=== PATIENT | female | born 1990 | race Caucasian/White ===

== ENCOUNTER 2018-05-26 18:24 | Emergency (ER) | payer SELFPAY ==
[~2018-05-26] VITALS: Ht 175.3 cm; Wt 59.9 kg
[~2018-05-26 18:24] MED LIST: ULTRAM50 MG PO; [UNRECOGNIZED DRUG - REMARK]
[2018-05-26] MEDS ORDERED: HYDROCODONE/APAP 10MG-325MG TAB PO ONE (19:30)
--- NOTE | 2018-05-26 20:21 | Diagnostic Imaging Report ---
LOWER LEG LEFT - 2 views HISTORY: Pain. Possible broken ankle. COMPARISON: None available. FINDINGS: Bones: No acute displaced fracture. Osseous alignment is within normal limits. Joints: The joint spaces are well-maintained. Soft tissues: The soft tissues appear unremarkable. IMPRESSION: No acute radiographic abnormality. Signed by: Dr. Jean Pierre Judge M.D. on 05/26/2018 8:18 PM
--- NOTE | 2018-05-26 20:23 | Diagnostic Imaging Report ---
FOOT LEFT COMPLETE - 3 views HISTORY: Pain. Possible broken foot. COMPARISON: None available. FINDINGS: Bones: Oblique fracture of the fifth metatarsal near the head without intra-articular involvement. Joints: The joint spaces are well-maintained. Soft tissues: Diffuse soft tissue swelling around the lateral aspect of the foot. IMPRESSION: Oblique fracture of the fifth metatarsal near the head without intra-articular involvement. Signed by: Dr. Jean Pierre Judge M.D. on 05/26/2018 8:20 PM
--- NOTE | 2018-05-26 20:23 | Diagnostic Imaging Report ---
ANKLE 3+ VIEWS LEFT - 3 views HISTORY: Pain. Possible broken ankle. COMPARISON: None available. FINDINGS: Bones: Partially visualized left fifth metatarsal fracture. Osseous alignment is within normal limits. Joints: The joint spaces are well-maintained. Soft tissues: Diffuse soft tissue swelling around the left ankle. IMPRESSION: 1. Diffuse soft tissue swelling around the left ankle. 2. Partially visualized left fifth metatarsal fracture. Signed by: Dr. Jean Pierre Judge M.D. on 05/26/2018 8:19 PM
[2018-05-26 21:26] VITALS: BP 112/64
== END 2018-05-26 21:31 | disposition home or self-care (01) ==
LOC: ER 18:24
DX: S80.12XA Contusion of left lower leg, initial encounter (principal); S90.02XA Contusion of left ankle, initial encounter; S90.512A Abrasion, left ankle, initial encounter; S90.32XA Contusion of left foot, initial encounter; S90.812A Abrasion, left foot, initial encounter; R26.2 Difficulty in walking, not elsewhere classified; W10.8XXA Fall (on) (from) other stairs and steps, initial encounter; Y92.008 Other place in unspecified non-institutional (private) residence as the place of occurrence of the external cause; S92.352A Displaced fracture of fifth metatarsal bone, left foot, initial encounter for closed fracture
CPT/HCPCS: 99283

== ENCOUNTER 2018-08-11 08:56 | Emergency (ER) | payer SELFPAY ==
[~2018-08-11] VITALS: Ht 175.3 cm; Wt 63.5 kg
[2018-08-11] MEDS ORDERED: SODIUM CHLORIDE 0.9% 1000ML 1,000 ML IV STA (09:32)
[2018-08-11] MEDS ORDERED: ONDANSETRON HCL INJ 2 MG/ML VIAL IV STA (09:33)
[2018-08-11] MEDS ORDERED: CEFTRIAXONE SOD 1 GM VIAL IV ONE (09:45)
[2018-08-11 10:34] LABS: BILIRUBIN,URINE NEGATIVE (NEGATIVE); CLARITY,URINE SL CLOUDY (CLEAR); COLOR,URINE YELLOW (YELLOW); KETONES,URINE 1+ (NEGATIVE); LEUKOCYTE ESTERASE ,URINE 1+ (NEGATIVE); NITRITE,URINE NEGATIVE (NEGATIVE); PROTEIN,URINE DIPSTICK 1+ (NEGATIVE); URINE UROBILINOGEN 1 mg/dL (0.2 - 1)
[2018-08-11 11:06] LABS: BACTERIA,URINE FEW /HPF
[2018-08-11 11:07] LABS: AMORPHOUS SEDIMENT,URINE FEW (FEW); EPITHELIAL CELLS,URINE FEW /LPF
[2018-08-11 11:08] LABS: TRANSITIONAL EPI CELLS,URINE FEW
== END 2018-08-11 12:30 | disposition home or self-care (01) ==
LOC: ER 08:56
DX: R10.30 Lower abdominal pain, unspecified (principal); R11.2 Nausea with vomiting, unspecified; N10 Acute pyelonephritis; N12 Tubulo-interstitial nephritis, not specified as acute or chronic
CPT/HCPCS: 81001; 87086; 99281; J0696; J2405; J7030